=== PATIENT | female | born 1940 | race Caucasian/White ===

== ENCOUNTER 2018-07-19 10:49 | Observation (INO) ==
--- NOTE | 2018-07-19 11:41 | ED ---
HPI General Chief Complaint: Neuro Symptoms/Deficit Stated Complaint: confusion Time Seen by Provider: 07/19/18 11:17 Source: patient Mode of arrival: ambulatory Limitations: no limitations History of Present Illness HPI narrative: 77-year-old female with a history of CABG x3, HLD, HTN presents to the emergency department with confusion. States this morning she woke up feeling normal and she started reading. Says she was able to read but the words made no sense. Says she went right away to a friend's house who brought her to the emergency department for evaluation. Her friend, Patrica, states that patient was unable to figure out how to use a remote control and "did not know what a phone plumbers and top helpers was". Patrica states that patient is usually alert and oriented and very sharp. She says that the patient was "hyperventilating" while she was at her house prior to coming to the emergency department today. She says she checked her blood pressure and systolic was 168. Patient is unsure if she took all of her medication today which includes a 325 mg aspirin. Patient denies headache, blurred vision, fever, chills, chest pain, shortness of breath, abdominal pain. Patient does not follow a studio operator but does have a primary care physician. Of note, her of 60 years passed approximately 3 weeks ago. She has not had any issues up to now however. MD complaint: confusion Onset (ago): minute(s) Severity: mild Consistency of symptoms: constant Associated symptoms: denies other symptoms Related Data Home Medications Medication Instructions Recorded Confirmed aspirin 325 mg PO DAILY 07/19/18 07/19/18 atorvastatin 40 mg PO DAILY 07/19/18 07/19/18 enalapril maleate 20 mg PO DAILY 07/19/18 07/19/18 escitalopram oxalate 10 mg PO DAILY 07/19/18 07/19/18 metoprolol tartrate 50 mg PO BID 07/19/18 07/19/18 multivitamin [Multiple Vitamins] 1 tab PO DAILY 07/19/18 07/19/18 Allergies Allergy/AdvReac Type Severity Reaction Status Date / Time No Known Allergies Allergy Unverified 07/19/18 11:18 Review of Systems ROS: all other systems reviewed are negative FOR[facility]LY [facility] Medical History Medical History Depression (Acute) Hypercholesteremia (Acute) Hypertension (Acute) Hypothyroidism (Acute) Surgical History Surgical History Hx of CABG (Acute) Family History Family History Son Brain aneurysm Heart attack Social History Social History Substance History: No History of Abuse Smoking Status: Former smoker How Often Do You Have a Drink Containing Alcohol: Never Recent Travel in [facility] within the Last 8 Weeks: No Recent Out of Country Travel within the Last 8 Weeks: No Immunization History Tetanus Immunization: Unsure Exam Narrative Exam Narrative: GENERAL: WD, WN, mildly anxious, becoming more anxious when she cannot answer a question appropriately such as what medications she takes. SKIN: Focused skin assessment warm/dry. HEAD: Atraumatic. Normocephalic. EYES: Pupils equal and round. No scleral icterus. No injection or drainage. ENT: No nasal bleeding or discharge. Mucous membranes pink and moist. NECK: Trachea midline. No JVD. CARDIOVASCULAR: Regular rate and rhythm. No murmur appreciated. RESPIRATORY: No accessory muscle use. Clear to auscultation. Breath sounds equal bilaterally. GASTROINTESTINAL: Abdomen soft, non-tender, nondistended. Hepatic and splenic margins not palpable. MUSCULOSKELETAL: No obvious deformities. No clubbing. No cyanosis. No edema. NEUROLOGICAL: Awake and alert. Cranial nerves II through XII intact. Motor and sensory grossly within normal limits. Five out of 5 muscle strength in all muscle groups. Normal speech. No pronator drift, heel to tapia normal PSYCHIATRIC:Slightly anxious mood and affect; insight and judgment normal. Course Initial Documented Vital Signs Temperature 98.1 F 07/19/18 10:53 Pulse Rate 73 07/19/18 10:53 Respiratory Rate 20 07/19/18 10:53 Blood Pressure 213/90 H 07/19/18 10:53 Pulse Oximetry 97 07/19/18 10:53 Last Documented Vital Signs Temperature 98.1 F 07/19/18 10:53 Pulse Rate 61 07/19/18 14:58 Respiratory Rate 16 07/19/18 15:30 Blood Pressure 176/74 H 07/19/18 14:58 Pulse Oximetry 98 07/19/18 14:58 NIH Stroke Scale NIH Stroke Scale Level of Consciousness: 0-Alert Orientation Questions: 0-Answers both correct Responds to Commands: 0-Both tasks correct Gaze Eye Movement: 0-Horizontal movement WNL Visual Harvey: 0-No visual field defect Facial Movement: 0-Normal Motor Functions Arm LEFT: 0-No drift Motor Functions Arm RIGHT: 0-No drift Motor Functions Leg LEFT: 0-No drift Motor Functions Leg RIGHT: 0-No drift Limb Ataxia: 0-No ataxia Sensory Loss: 0-No sensory loss Best Language: 0-Normal Articulation: 0-Normal Extinction or Inattention Sensory: 0-Absent Total: 0 Medical Decision Making MDM Narrative Medical decision making narrative: 77-year-old female presents to the emergency department with a friend, Lyly, who was previously an RN. She assists with the history. Patient denies history of this sort of episode previously and states she has a history of hypertension, hyperlipidemia, and CABG. Patient does not follow studio operator in a number of years. Of note, her of 60 years recently approximately 3 weeks ago. However, she has not had any issues up until today. She took her medication today which include 325 mg aspirin. Physical exam findings demonstrate a 77-year-old female mildly anxious. I cannot appreciate any neuro deficits but patient becomes anxious when I asked her what medication she takes and she cannot remember. Upon reevaluation, pt recalls her medication after a medication reconcilliation. She still does not know what a phone plumbers and top helpers is for and is still confused, according to her friend. She also tells me she has a mild- moderate frontal parasinus headache that was present since this morning. She did not admit this upon initial evaluation. Tylenol for headache. Labs are stable. Cardiac enzymes stable. I explained that her symptoms may be related to complicated grief, however, I believe a period of observation would be appropriate. Consider Psych consult upon admission. I spoke with Dr. Snow who agreed to the admission. Medical Screen Exam Complete: Yes Emergency Medical Condition: Yes Differential Diagnosis Differential Diagnosis: Complicated grief, CVA, TIA, UTI, AMS Lab Data Result diagrams: 07/19/18 11:58 07/19/18 11:58 Lab Results 07/19/18 07/19/18 07/19/18 Range/Units 11:58 11:58 11:58 WBC 6.1 (4.0-11.0) th/mm3 RBC 4.09 (4.00-5.30) mil/mm3 Hgb 13.2 (11.6-15.3) gm/dL Hct 38.2 (35.0-46.0) % MCV 93.3 (80.0-100.0) fL MCH 32.2 (27.0-34.0) pg MCHC 34.6 (32.0-36.0) % RDW 13.9 (11.6-17.2) % Plt Count 271 (150-450) th/mm3 MPV 9.6 (7.0-11.0) fL Neut % (Auto) 62.2 (16.0-70.0) % Lymph % (Auto) 24.8 (9.0-44.0) % [place] % (Auto) 9.8 H (0.0-8.0) % Eos % (Auto) 2.4 (0.0-4.0) % Baso % (Auto) 0.8 (0.0-2.0) % Neut # (Auto) 3.8 (1.8-7.7) th/mm3 Lymph # (Auto) 1.5 (1.0-4.8) th/mm3 [place] # (Auto) 0.6 (0.0-0.9) th/mm3 Eos # (Auto) 0.1 (0.0-0.4) th/mm3 Baso # (Auto) 0.0 (0.0-0.2) th/mm3 WBC Differential . Differential Comment Auto diff final PT 10.1 (9.8-11.6) sec INR 1.0 Ratio APTT 22.4 L (24.3-30.1) sec Sodium 141 (136-145) meq/L Potassium 4.0 (3.5-5.1) meq/L Chloride 106 (98-107) meq/L Carbon Dioxide 23.0 (21.0-32.0) meq/L Anion Gap 12 (5-15) meq/L BUN 21 H (7-18) mg/dL Creatinine 0.96 (0.50-1.00) mg/dL Estimated GFR 56 L (>89) mL/min POC Glucose (68-110) mg/dl Random Glucose 107 H (74-106) mg/dL Calcium 8.6 (8.5-10.1) mg/dL Total Bilirubin 0.4 (0.2-1.0) mg/dL AST 18 (15-37) U/L ALT 23 (10-53) U/L Alkaline Phosphatase 52 (45-117) U/L Total Creatine Kinase 97 (26-192) U/L Troponin I Less than 0.02 L (0.02-0.05) ng/mL Total Protein 7.5 (6.4-8.2) g/dL Albumin 3.6 (3.4-5.0) g/dL TSH 3.130 (0.358-3.740) uIU/mL Urine Color (Yellw/Straw) Urine Clarity (Clear) Urine pH (5.0-8.5) Ur Specific [place] (1.002-1.035) Urine Protein (Neg-Trace) mg/dL Urine Glucose (UA) (Negative) mg/dL Urine Ketones (Negative) mg/dL Urine Occult Blood (Negative) Urine Nitrate (Negative) Urine Bilirubin (Negative) Urine Urobilinogen (Less than 2) mg/dL Ur Leukocyte Esterase (Negative) Urine RBC (0-3) /hpf Urine WBC (0-5) /hpf Micro UA Comment Ur Microscopic Review Urine Culture Comments 07/19/18 07/19/18 Range/Units 12:26 12:29 WBC (4.0-11.0) th/mm3 RBC (4.00-5.30) mil/mm3 Hgb (11.6-15.3) gm/dL Hct (35.0-46.0) % MCV (80.0-100.0) fL MCH (27.0-34.0) pg MCHC (32.0-36.0) % RDW (11.6-17.2) % Plt Count (150-450) th/mm3 MPV (7.0-11.0) fL Neut % (Auto) (16.0-70.0) % Lymph % (Auto) (9.0-44.0) % [place] % (Auto) (0.0-8.0) % Eos % (Auto) (0.0-4.0) % Baso % (Auto) (0.0-2.0) % Neut # (Auto) (1.8-7.7) th/mm3 Lymph # (Auto) (1.0-4.8) th/mm3 [place] # (Auto) (0.0-0.9) th/mm3 Eos # (Auto) (0.0-0.4) th/mm3 Baso # (Auto) (0.0-0.2) th/mm3 WBC Differential Differential Comment PT (9.8-11.6) sec INR Ratio APTT (24.3-30.1) sec Sodium (136-145) meq/L Potassium (3.5-5.1) meq/L Chloride (98-107) meq/L Carbon Dioxide (21.0-32.0) meq/L Anion Gap (5-15) meq/L BUN (7-18) mg/dL Creatinine (0.50-1.00) mg/dL Estimated GFR (>89) mL/min POC Glucose 113 H (68-110) mg/dl Random Glucose (74-106) mg/dL Calcium (8.5-10.1) mg/dL Total Bilirubin (0.2-1.0) mg/dL AST (15-37) U/L ALT (10-53) U/L Alkaline Phosphatase (45-117) U/L Total Creatine Kinase (26-192) U/L Troponin I (0.02-0.05) ng/mL Total Protein (6.4-8.2) g/dL Albumin (3.4-5.0) g/dL TSH (0.358-3.740) uIU/mL Urine Color Straw (Yellw/Straw) Urine Clarity Clear (Clear) Urine pH 8.0 (5.0-8.5) Ur Specific [place] 1.006 (1.002-1.035) Urine Protein Negative (Neg-Trace) mg/dL Urine Glucose (UA) Negative (Negative) mg/dL Urine Ketones Negative (Negative) mg/dL Urine Occult Blood Negative (Negative) Urine Nitrate Negative (Negative) Urine Bilirubin Negative (Negative) Urine Urobilinogen Less than 2 (Less than 2) mg/dL Ur Leukocyte Esterase Negative (Negative) Urine RBC 1 (0-3) /hpf Urine WBC Less than 1 (0-5) /hpf Micro UA Comment Culture not ind Ur Microscopic Review Not Reportable Urine Culture Comments Culture not ind Imaging Data Radiologist's impression: Head MRI 07/19/18 00:00 CONCLUSION: No acute intracranial findings. Head MRA 07/19/18 00:00 CONCLUSION: Negative MRA Cow ([place]) non contrast. Chest X-Ray 07/19/18 11:30 CONCLUSION: 1. Postsurgical features with compensated mild cardiomegaly. Head CT 07/19/18 11:30 CONCLUSION: 1. Senescent changes without acute intracranial abnormality. . Discharge Plan Discharge Disposition Patient Disposition: 30 Still Patient Discharge Condition Condition: Stable Physicians Team ED Provider: Flaco Clark ED Midlevel Provider: Martina Rivera Primary Care Provider: Fernie Sauceda Attending Provider: Sia Snow Status ED Status: Admitted Observation Patient
--- NOTE | 2018-07-19 11:50 | XR ---
EXAM DATE: 07/19/2018 11:46 AM EDT AGE/SEX: 77 years / Female INDICATIONS: General confusion and headache. CLINICAL DATA: This is the patient's initial encounter. Patient reports that signs and symptoms have been present for 1 day and indicates a pain score of 2/10. MEDICAL/SURGICAL HISTORY: Hypertension. None. COMPARISON: No prior exams available for comparison. FINDINGS: Median sternotomy wires. Cardiac silhouette is mildly enlarged. No significant focal pleural or paren chymal opacities. Bony thorax is intact. CONCLUSION: 1. Postsurgical features with compensated mild cardiomegaly. Electronically signed by: Ar Biggs MD 07/19/2018 11:48 AM EDT
[2018-07-19 12:20] LABS: Baso % (Auto) 0.8 % (0.0-2.0); Eos # (Auto) 0.1 th/mm3 (0.0-0.4); Eos % (Auto) 2.4 % (0.0-4.0); Hematocrit 38.2 % (35.0-46.0); Hemoglobin 13.2 gm/dL (11.6-15.3); Lymph # (Auto) 1.5 th/mm3 (1.0-4.8); Lymph % (Auto) 24.8 % (9.0-44.0); Mean Corpuscular HGB Conc 34.6 % (32.0-36.0); Mean Corpuscular Hemoglobin 32.2 pg (27.0-34.0); Mean Corpuscular Volume 93.3 fL (80.0-100.0); Mean Platelet Volume 9.6 fL (7.0-11.0); Mono # (Auto) 0.6 th/mm3 (0.0-0.9); Mono % (Auto) 9.8 % (0.0-8.0); Neut # (Auto) 3.8 th/mm3 (1.8-7.7); Neut % (Auto) 62.2 % (16.0-70.0); Platelet Count 271 th/mm3 (150-450); Red Blood Count 4.09 mil/mm3 (4.00-5.30); Red Cell Distribution Width 13.9 % (11.6-17.2); White Blood Count 6.1 th/mm3 (4.0-11.0)
[2018-07-19 12:33] LABS: Activated Partial Thrombo Time 22.4 sec (24.3-30.1); Prothrombin Time 10.1 sec (9.8-11.6)
[2018-07-19 12:35] LABS: Alanine Aminotransferase 23 U/L (10-53); Albumin 3.6 g/dL (3.4-5.0); Anion Gap 12 meq/L (5-15); Aspartate Aminotransferase 18 U/L (15-37); Blood Urea Nitrogen 21 mg/dL (7-18); Calcium 8.6 mg/dL (8.5-10.1); Chloride 106 meq/L (98-107); Glomerular Filtration Rate 56 mL/min (>89); Glucose,Random 107 mg/dL (74-106); Sodium 141 meq/L (136-145)
[2018-07-19 12:44] LABS: Bilirubin,Urine Negative (Negative); Clarity,Urine Clear (Clear); Color,Urine Straw (Yellw/Straw); Glucose,Urine (UA) Negative (Negative); Leukocyte Esterase,Urine Negative (Negative); Nitrite,Urine Negative (Negative); Specific Gravity,Urine 1.006 (1.002-1.035)
[2018-07-19 12:45] LABS: Alkaline Phosphatase 52 U/L (45-117); Total Protein 7.5 g/dL (6.4-8.2)
--- NOTE | 2018-07-19 13:05 | CT ---
EXAM DATE: 07/19/2018 1:02 PM EDT AGE/SEX: 77 years / Female INDICATIONS: Altered mental status, confusion CLINICAL DATA: This is the patient's initial encounter. Patient reports that signs and symptoms have been present for 1 day and indicates a pain score of 0/10. MEDICAL/SURGICAL HISTORY: Hypertension. Hypothyroidism. CABG. RADIATION DOSE: 34.45 CTDI (mGy) COMPARISON: No prior exams available for comparison. TECHNIQUE: CT of the head without contrast. Using automated exposure control and adjustment of the mA and/or kV according to patient size, radiation dose was kept as low as reasonably achievable to ob tain optimal diagnostic quality images. DICOM format image data is available electronically for revi ew and comparison. FINDINGS: Cerebrum: Moderate diffuse cerebral atrophy. The ventricles are normal for degree of atrophy. No judith dence of midline shift, mass lesion, hemorrhage or acute infarction. No extraaxial fluid collections are seen. Posterior Fossa: The cerebellum and brainstem are intact. The 4th ventricle is midline. The cerebe llopontine angle is unremarkable. Extracranial: The visualized portion of the orbits is intact. Skull: The calvaria is intact. No evidence of skull fracture. CONCLUSION: 1. Senescent changes without acute intracranial abnormality. . Electronically signed by: Ar Biggs MD 07/19/2018 1:03 PM EDT
[2018-07-19 13:10] LABS: Creatine Kinase 97 U/L (26-192)
[2018-07-19] MEDS ORDERED: Acetaminophen 500 MG Tablet PO ONE (13:31)
[2018-07-19] MEDS ORDERED: Bisacodyl 10 MG Supp RECTAL PRN (13:37)
[2018-07-19] MEDS ORDERED: Acetaminophen 325 MG Tablet PO PRN (13:37)
--- NOTE | 2018-07-19 14:20 | P.HPIM ---
History of Present Illness Primary Care Physician: Fernie Sauceda MD History of Present Illness: 77 year old female with HLD, HTN, CAD s/p CABG x 3, "painless" migraines with aura presented to the ER by private vehicle for evaluation of altered mental status. The patient reports this morning when she was reading she felt like she could read the words but couldn't understand what they meant. She immediately felt anxious and started panicking. She went to her neighbors house who monitored her closely. Her neighbor, a retired RN, reports she is typically very cognitively sharp but states this morning she had difficulty identifying every day items such as a phone charge. She was however able to use the television remote. The patient admits that she has been under a tremendous amount of stress after losing her three weeks ago. She is very worried about her symptoms and is scared it may have been a stroke. She denies any lateralizing symptoms, facial droop, visual changes, slurred speech, dizziness, gait instability, falls, or paresthesias. She states she did notice a headache in between her eyes this morning and it is still present despite taking Tylenol. She denies chest pain, shortness of breath, abdominal pain, nausea, or vomiting. She takes Lexapro for depression. She states lately she has been feeling anxious, shaky, and has had difficulty sleeping. She states aside from feeling anxious her symptoms have otherwise resolved. - Diagnosis (1) Altered mental status Review of Systems All other systems reviewed negative except as stated in HPI PMFSH - History History Provided By: Patient, Family Member - Medical History Medical History: Medical History (Last Updated 07/19/18 @ 11:22 by Erna Georges) Depression Hypercholesteremia Hypertension Hypothyroidism - Surgical History Surgical History: Surgical History (Last Updated 07/19/18 @ 11:23 by Erna Georges) Hx of CABG - Family History Family History: Family History (Last Updated 07/19/18 @ 13:55 by Sia Snow MD) Son Brain aneurysm Heart attack - Tobacco History Smoking Status: Former smoker - Alcohol History How Often Do You Have a Drink Containing Alcohol: Never - Substance Use History Substance History: No History of Abuse - Travel History Recent Travel in the [facility] Within the Last 8 Weeks: No Recent Travel Out of the Country Within the Last 8 Weeks: No - Immunization History Tetanus Immunization: Unsure Medications and Allergies Active Medications: Active Medications Acetaminophen (Tylenol) 650 mg PO Q4H PRN PRN Reason: Temp > 100.4 Al Hydroxide/Mg Hydroxide (Milk Of Magnesia Liq) 30 ml PO Q12H PRN PRN Reason: Mild Constipation Bisacodyl (Dulcolax Supp) 10 mg RECTAL DAILY PRN PRN Reason: SEVERE CONSITIPATION Sodium Chloride (Ns Inj) 1,000 mls @ 70 mls/hr IV.CONT .[id number] LETY Lactulose (Lactulose Liq) 30 ml PO DAILY PRN PRN Reason: SEVERE CONSITIPATION Ondansetron HCl (Zofran Inj) 4 mg IV.PUSH Q6H PRN PRN Reason: NAUSEA OR VOMITING Senna/Docusate Sodium ([place]-Colace) 1 tab PO BID LETY Sennosides (Senokot) 17.2 mg PO Q12H PRN PRN Reason: Moderate Constipation Sodium Chloride (Ns Flush) 2 ml IV.FLUSH PRN PRN PRN Reason: FLUSH AFTER USING IV ACCESS Allergies Allergy/AdvReac Type Severity Reaction Status Date / Time No Known Allergies Allergy Unverified 07/19/18 11:18 Home Medications Medication Instructions Recorded Confirmed Type aspirin 325 mg PO DAILY 07/19/18 07/19/18 History atorvastatin 40 mg PO DAILY 07/19/18 07/19/18 History enalapril maleate 20 mg PO DAILY 07/19/18 07/19/18 History escitalopram oxalate 10 mg PO DAILY 07/19/18 07/19/18 History metoprolol tartrate 50 mg PO BID 07/19/18 07/19/18 History multivitamin [Multiple Vitamins] 1 tab PO DAILY 07/19/18 07/19/18 History Exam Vital signs: Vital Signs 07/19/18 10:53 07/19/18 10:57 07/19/18 11:30 Temperature 98.1 F Pulse Rate 73 61 61 Respiratory Rate 20 20 Blood Pressure 213/90 H 178/78 H Pulse Oximetry 97 97 98 07/19/18 12:31 Temperature Pulse Rate 62 Respiratory Rate 18 Blood Pressure 182/81 H Pulse Oximetry 100 Intake & Output 07/18/18 07/19/18 07/19/18 18:59 06:59 18:59 Weight 81.647 kg Narrative: GENERAL: WN, WD female sitting up in bed visibly anxious and tremulous. SKIN: Warm and dry. Not diaphoretic. No rashes. HEENT: AT/NC. PERRLA. EOMI. No nystagmus. MMM. NECK: Supple no tender LAD or JVD. HEART: RRR no m/r/g. LUNGS: CTAB without wheezes or crackles. ABDOMEN: +BS, soft, NT, ND. EXTREMITIES: No LE edema. 2+ pedal pulses. NEURO: A&O x 3. CN II-XII intact. UE and LE strength 5/5 bilaterally. No pronator drift. No clonus. Able to perform rapid alternating movements. Sensation intact. Able to read out loud some text to me and interpret meaning. Able to name simple objects. PSYCH: Anxious. Results - Labs CBC & Chem 7: 07/19/18 11:58 07/19/18 11:58 Labs: Short CBC 07/19/18 Range/Units 11:58 WBC 6.1 (4.0-11.0) th/mm3 Hgb 13.2 (11.6-15.3) gm/dL Hct 38.2 (35.0-46.0) % Plt Count 271 (150-450) th/mm3 BMP 07/19/18 11:58 Sodium 141 Potassium 4.0 Chloride 106 Carbon Dioxide 23.0 BUN 21 H Creatinine 0.96 Calcium 8.6 Cardiac Enzymes 07/19/18 Range/Units 11:58 Total Creatine Kinase 97 (26-192) U/L Troponin I Less than 0.02 L (0.02-0.05) ng/mL Liver Function 07/19/18 Range/Units 11:58 Total Bilirubin 0.4 (0.2-1.0) mg/dL AST 18 (15-37) U/L ALT 23 (10-53) U/L Alkaline Phosphatase 52 (45-117) U/L Albumin 3.6 (3.4-5.0) g/dL Urine 07/19/18 Range/Units 12:26 Urine Color Straw (Yellw/Straw) Urine Clarity Clear (Clear) Urine pH 8.0 (5.0-8.5) Ur Specific [place] 1.006 (1.002-1.035) Urine Protein Negative (Neg-Trace) mg/dL Urine Glucose (UA) Negative (Negative) mg/dL - Imaging Impressions Chest X-Ray 07/19/18 11:30 CONCLUSION: 1. Postsurgical features with compensated mild cardiomegaly. Head CT 07/19/18 11:30 CONCLUSION: 1. Senescent changes without acute intracranial abnormality. . Caprini VTE Risk Assessment Caprini VTE Risk Assessment: Moderate/High Risk (score >= 2) Caprini Risk Assessment Model: Point Value = 1 Point Value = 2 Point Value = 3 Point Value = 5 Age 41-60 Minor surgery BMI > 25 kg/m2 Swollen legs Varicose veins or History of unexplained or recurrent spontaneous Oral contraceptives or hormone replacement Sepsis (< 1 month) Serious lung disease, including pneumonia (< 1 month) Abnormal pulmonary function Acute myocardial infarction Congestive heart failure (< 1 month) History of inflammatory bowel disease Medical patient at bed rest Age 61-74 Arthroscopic surgery Major open surgery (> 45 min) Laparoscopic surgery (> 45 min) Malignancy Confined to bed (> 72 hours) Immobilizing plaster cast Central venous access Age >= 75 History of VTE Family history of VTE Factor V Leiden Prothrombin [id number] Lupus anticoagulant Anticardiolipin antibodies Elevated serum homocysteine Heparin-induced thrombocytopenia Other congenital or acquired thrombophilia Stroke (< 1 month) Elective arthroplasty Hip, pelvis, or leg fracture Acute spinal cord injury (< 1 month) Prophylaxis Regimen: Total Risk Factor Score Risk Level Prophylaxis Regimen 0-1 Low Early ambulation 2 Moderate Order ONE of the following: *Sequential Compression Device (SCD) *Heparin 5000 units SQ BID 3-4 Higher Order ONE of the following medications: *Heparin 5000 units SQ TID *Enoxaparin/Lovenox 40 mg SQ daily (WT < 150 kg, CrCl > 30 mL/min) *Enoxaparin/Lovenox 30 mg SQ daily (WT < 150 kg, CrCl > 10-29 mL/min) *Enoxaparin/Lovenox 30 mg SQ BID (WT < 150 kg, CrCl > 30 mL/min) AND/OR *Sequential Compression Device (SCD) 5 or more Highest Order ONE of the following medications: *Heparin 5000 units SQ TID (Preferred with Epidurals) *Enoxaparin/Lovenox 40 mg SQ daily (WT < 150 kg, CrCl > 30 mL/min) *Enoxaparin/Lovenox 30 mg SQ daily (WT < 150 kg, CrCl > 10-29 mL/min) *Enoxaparin/Lovenox 30 mg SQ BID (WT < 150 kg, CrCl > 30 mL/min) AND *Sequential Compression Device (SCD) Assessment and Plan - Assessment (1) Altered mental status Code(s): R41.82 - Altered mental status, unspecified Status: Acute - Plan 77 year old female with HLD, HTN, CAD s/p CABG x 3, "painless" migraines with aura presented to the ER by private vehicle for evaluation of altered mental status earlier in the day. 1. AMS - No signs of infection. No fever, leukocytosis, or UTI - CXR with mild compensated cardiomegaly otherwise negative for acute process - CT and MRI brain negative - MRA brain negative - Carotid U/S ordered - Defer echocardiogram - Neuro exam is completely normal - Pt with recent loss of of 60 years - Likely her symptoms were anxiety from her recent loss and the amount of stress she has been under - NS at 70 ml/hr - Will observe overnight with neuro checks 2. HTN - Elevated likely secondary to anxiety - Resume home metoprolol and Vasotec - Clonidine PRN 3. HLD - Resume home statin 4. CAD - S/P CABG - EKG showing SR, Q-waves in III and AVF - Troponin negative, trend given altered mentation earlier - Resume home metoprolol and Vasotec 5. Depression/anxiety - Continue Lexapro - Add Xanax PRN DVT prophylaxis: SCDs Code Status: Full Discussed Condition With: Patient Discharge Planning: Anticipate D/C tomorrow if patient remains stable
[2018-07-19] MEDS: Sod Chloride 0.9% Inj 1,000 ML IV.CONT SCH (14:53)
--- NOTE | 2018-07-19 14:58 | MR ---
EXAM DATE: 07/19/2018 2:53 PM EDT AGE/SEX: 77 years / Female INDICATIONS: Cephalgia. CLINICAL DATA: This is the patient's initial encounter. Patient reports that signs and symptoms have been present for 1 day and indicates a pain score of 0/10. MEDICAL/SURGICAL HISTORY: Hypertension. CABG. Tonsillectomy. COMPARISON: [facility] [place], MR HEAD W/O CONTRAST, 07/19/2018. . TECHNIQUE: 3D [id number] MRA was performed. Source images, multiplanar STS MIP, and 3D volum e MIP reconstructions were reviewed. FINDINGS: There is excellent visualization of the major intracranial arteries out to the second-order branch ve ssels. There is no evidence for aneurysm, vessel truncation or stenosis, and no evidence for vascula r malformation. CONCLUSION: Negative MRA Cow ([place]) non contrast. Electronically signed by: Abhay Joyner MD 07/19/2018 2:56 PM EDT
--- NOTE | 2018-07-19 14:59 | MR ---
EXAM DATE: 07/19/2018 2:53 PM EDT AGE/SEX: 77 years / Female INDICATIONS: Cephalgia. CLINICAL DATA: This is the patient's initial encounter. Patient reports that signs and symptoms have been present for 1 day and indicates a pain score of 0/10. MEDICAL/SURGICAL HISTORY: Hypertension. CABG. Tonsillectomy. COMPARISON: No prior exams available for comparison. TECHNIQUE: Multiplanar, multisequence examination of the brain was performed without contrast. FINDINGS: Cerebrum: The ventricles are normal for age. No evidence of midline shift, mass lesion, hemorrhage or acute infarction. No extraaxial fluid collections are seen. The pituitary gland and suprasellar cistern are normal in configuration. White Matter: Scattered foci of white matter hyperintensity in the periventricular regions indicatin g chronic ischemic change. Posterior Fossa: The cerebellum and brainstem are intact. The 4th ventricle is midline. The cerebel lopontine angle is unremarkable. The cerebellar tonsils are normal in position. Diffusion Imaging: No focal areas of restricted diffusion are seen. No evidence of acute infarction . Extracranial: The visualized portions of the orbits and paranasal sinuses are unremarkable. CONCLUSION: No acute intracranial findings. Electronically signed by: Ryan Velazquez MD 07/19/2018 2:57 PM EDT
--- NOTE | 2018-07-19 17:51 | US ---
EXAM DATE: 07/19/2018 5:24 PM EDT AGE/SEX: 77 years / Female INDICATIONS: Transient ischemic attack. CLINICAL DATA: This is the patient's initial encounter. Patient reports that signs and symptoms have been present for 1 day and indicates a pain score of 0/10. MEDICAL/SURGICAL HISTORY: Hypercholesterolemia. Hypertension. Hypothyroidism. Depression. C ABG. COMPARISON: No prior exams available for comparison. VELOCITY PARAMETERS: ICA/CCA Ratio: Right 2.2 , Left 2.6 ICA: Right 127 cm/sec, Left 127 cm/sec CCA: Right 58.4 cm/sec, Left 49.4 cm/sec ECA: Right 100 cm/sec, Left 108 cm/sec Vertebral: Right 78.0 cm/sec antegrade, Left 83.2 cm/sec antegrade FINDINGS: Right Carotid: Moderate arteriosclerotic plaque is visualized.The waveforms are within normal limits . Left Carotid: Moderate arteriosclerotic plaque is visualized. The waveforms are within normal limits . Other: None. CONCLUSION: 1. Right Internal Carotid Artery: Findings indicate <50% stenosis. 2. Left Internal Carotid Artery: Findings indicate <50% stenosis. 3. Antegrade flow both vertebral arteries. Electronically signed by: Jean Sen MD 07/19/2018 5:50 PM EDT
--- NOTE | 2018-07-19 20:25 | ECG ---
Date Performed: 07/19/2018 Time Performed: 12:34:19 PTAGE: 77 years EKG: Sinus rhythm POSSIBLE ANTERIOR MYOCARDIAL INFARCTION INFERIOR MYOCARDIAL INFARCTION ABNORMAL ECG NO PREVIOUS TRACING DOCTOR: Ricky Chamorro Interpretating Date/Time 07/19/2018 20:24:16
[2018-07-19] MEDS: Metoprolol Tartrate 50 MG Tablet PO SCH (21:21)
[2018-07-19] MEDS: ALPRAZolam 0.25 MG Tablet PO PRN (21:26)
[2018-07-19] MEDS: Senna/Docusate Sodium 8.6/50 MG Tablet PO SCH (23:14)
[2018-07-19] MEDS: Heparin Drip 25,000 UNIT/250 ML BAG IV.CONT PRN (23:39)
[2018-07-20 00:14] LABS: Activated Partial Thrombo Time 21.7 sec (24.3-30.1); INR 1.1 Ratio; Prothrombin Time 10.8 sec (9.8-11.6)
[2018-07-20] MEDS ORDERED: Heparin 10,000 UNITS/10 ML Vial (for IV use) IV.PUSH PRN (04:24)
[2018-07-20] MEDS: Sod Chloride 0.9% Inj 1,000 ML IV.CONT SCH ×2 (05:08→17:58)
[2018-07-20 05:56] LABS: Baso % (Auto) 0.7 % (0.0-2.0); Eos # (Auto) 0.1 th/mm3 (0.0-0.4); Eos % (Auto) 1.6 % (0.0-4.0); Hematocrit 34.7 % (35.0-46.0); Hemoglobin 11.8 gm/dL (11.6-15.3); Lymph # (Auto) 1.9 th/mm3 (1.0-4.8); Lymph % (Auto) 32.9 % (9.0-44.0); Mean Corpuscular HGB Conc 33.9 % (32.0-36.0); Mean Corpuscular Hemoglobin 31.7 pg (27.0-34.0); Mean Corpuscular Volume 93.7 fL (80.0-100.0); Mean Platelet Volume 9.9 fL (7.0-11.0); Mono # (Auto) 0.6 th/mm3 (0.0-0.9); Mono % (Auto) 10.1 % (0.0-8.0); Neut # (Auto) 3.2 th/mm3 (1.8-7.7); Neut % (Auto) 54.7 % (16.0-70.0); Platelet Count 222 th/mm3 (150-450); Red Blood Count 3.71 mil/mm3 (4.00-5.30); Red Cell Distribution Width 13.8 % (11.6-17.2); White Blood Count 5.9 th/mm3 (4.0-11.0)
[2018-07-20 06:34] LABS: Calcium 8.1 mg/dL (8.5-10.1); Carbon Dioxide 23.5 meq/L (21.0-32.0)
[2018-07-20] MEDS: Escitalopram 10 MG Tablet PO SCH (08:35)
[2018-07-20] MEDS: Metoprolol Tartrate 50 MG Tablet PO SCH ×2 (08:35→21:02)
[2018-07-20] MEDS: Aspirin 325 MG Tablet PO SCH (08:35)
[2018-07-20] MEDS: Senna/Docusate Sodium 8.6/50 MG Tablet PO SCH ×2 (08:36→21:02)
--- NOTE | 2018-07-20 10:11 | P.CONCA ---
History of Present Illness Consult date: 07/20/18 Reason for Consult: NSTEMI Primary Care Provider: Fernie Sauceda MD Chief Complaint: NSTEMI History of Present Illness: 77 year old history of CAD s/p CABG, HTN, HLD, and former smoking who presented to the ER with confusion and an inability to read. She has unfortunately had a great deal of stress secondary to the recent loss of her . She does not report having chest pain, shortness of breath, PND, orthopnea. She has not had a recent cardiovascular workup. Her troponin was found to be elevated at 0.88. There were no acute EKG changes. Currently, the patient is chest pain free and eating breakfast. Review of Systems Negative unless mentioned in the HPI. PMFSH - History History Provided By: Patient - Medical History Medical History: Medical History (Last Updated 07/19/18 @ 11:22 by Erna Georges) Depression Hypercholesteremia Hypertension Hypothyroidism - Surgical History Surgical History: Surgical History (Last Updated 07/19/18 @ 11:23 by Erna Georges) Hx of CABG - Family History Family History: Family History (Last Updated 07/19/18 @ 13:55 by Sia Snow MD) Son Brain aneurysm Heart attack - Tobacco History Second Hand Smoke Exposure: No Tobacco Use In Past 30 Days: No (Quit 30 years ago) Smoking Status: Former smoker Tobacco Type: Cigarettes - Alcohol History How Often Do You Have a Drink Containing Alcohol: Never - Substance Use History Substance History: No History of Abuse - Travel History Recent Travel in the [place] Within the Last 8 Weeks: No Recent Travel Out of the Country Within the Last 8 Weeks: No - Immunization History Tetanus Immunization: Unsure Medications and Allergies Active Medications: Active Medications Acetaminophen (Tylenol) 650 mg PO Q4H PRN PRN Reason: HEADACHE OR TEMP > 101 F Last Admin: 07/19/18 18:02 Dose: 325 mg Al Hydroxide/Mg Hydroxide (Milk Of Magnesia Liq) 30 ml PO Q12H PRN PRN Reason: Mild Constipation Alprazolam (Xanax) 0.25 mg PO Q6H PRN PRN Reason: ANXIETY Last Admin: 07/19/18 21:26 Dose: 0.25 mg Aspirin (Aspirin) 325 mg PO DAILY LETY Last Admin: 07/20/18 08:35 Dose: 325 mg Atorvastatin Calcium (Lipitor) 40 mg PO DAILY [facility] Bisacodyl (Dulcolax Supp) 10 mg RECTAL DAILY PRN PRN Reason: SEVERE CONSITIPATION Clonidine HCl (Catapres) 0.1 mg PO Q6H PRN PRN Reason: SBP>160, DBP>90 Enalapril Maleate (Vasotec) 20 mg PO DAILY [facility] Last Admin: 07/20/18 08:35 Dose: 20 mg Escitalopram Oxalate (Lexapro) 10 mg PO DAILY [facility] Last Admin: 07/20/18 08:35 Dose: 10 mg Heparin Sodium (Porcine) (Heparin Inj) 2,500 units IV.PUSH UNSCH PRN PRN Reason: aPTT 25-39 Sodium Chloride (Ns Inj) 1,000 mls @ 70 mls/hr IV.CONT .[id number] [facility] Last Admin: 07/20/18 05:08 Dose: 70 mls/hr Heparin Sodium/Dextrose (Heparin/D5w 25,000 U/250 Ml) 25,000 unit in 250 mls @ 10 mls/hr IV.CONT TITRATE PRN; Protocol PRN Reason: Per Protocol Last Titration: 07/20/18 06:48 Dose: 1,100 units/hr, 11 mls/hr Lactulose (Lactulose Liq) 30 ml PO DAILY PRN PRN Reason: SEVERE CONSITIPATION Metoprolol Tartrate (Lopressor) 50 mg PO BID [facility] Last Admin: 07/20/18 08:35 Dose: 50 mg Ondansetron HCl (Zofran Inj) 4 mg IV.PUSH Q6H PRN PRN Reason: NAUSEA OR VOMITING Senna/Docusate Sodium ([place]-Colace) 1 tab PO BID [facility] Last Admin: 07/20/18 08:36 Dose: Not Given Sennosides (Senokot) 17.2 mg PO Q12H PRN PRN Reason: Moderate Constipation Sodium Chloride (Ns Flush) 2 ml IV.FLUSH PRN PRN PRN Reason: FLUSH AFTER USING IV ACCESS Allergies Allergy/AdvReac Type Severity Reaction Status Date / Time No Known Allergies Allergy Unverified 07/19/18 11:18 Home Medications Medication Instructions Recorded Confirmed Type aspirin 325 mg PO DAILY 07/19/18 07/19/18 History atorvastatin 40 mg PO DAILY 07/19/18 07/19/18 History enalapril maleate 20 mg PO DAILY 07/19/18 07/19/18 History escitalopram oxalate 10 mg PO DAILY 07/19/18 07/19/18 History metoprolol tartrate 50 mg PO BID 07/19/18 07/19/18 History multivitamin [Multiple Vitamins] 1 tab PO DAILY 07/19/18 07/19/18 History Exam Vital signs: Vital Signs 07/19/18 10:53 07/19/18 10:57 07/19/18 11:30 Temperature 98.1 F Pulse Rate 73 61 61 Respiratory Rate 20 20 Blood Pressure 213/90 H 178/78 H Pulse Oximetry 97 97 98 07/19/18 12:31 07/19/18 13:40 07/19/18 14:58 Temperature Pulse Rate 62 61 Respiratory Rate 18 18 16 Blood Pressure 182/81 H 176/74 H Pulse Oximetry 100 98 07/19/18 15:30 07/19/18 17:15 07/19/18 17:47 Temperature 98.1 F Pulse Rate 63 63 Respiratory Rate 16 16 14 Blood Pressure 147/67 H 163/73 H Pulse Oximetry 96 07/19/18 19:40 07/19/18 20:00 07/19/18 22:55 Temperature 97.3 F L Pulse Rate 65 50 L 49 L Respiratory Rate 14 18 Blood Pressure 116/59 L 120/56 L 120/56 L Pulse Oximetry 95 07/19/18 23:40 07/20/18 00:00 07/20/18 01:40 Temperature 98.0 F 98.0 F 98.0 F Pulse Rate 49 L 49 L 59 L Respiratory Rate 15 14 14 Blood Pressure 114/55 L 114/55 L 114/55 L Pulse Oximetry 97 07/20/18 03:33 07/20/18 04:00 07/20/18 05:40 Temperature 98.1 F 98.1 F 98.5 F Pulse Rate 49 L 49 L 48 L Respiratory Rate 14 14 Blood Pressure 114/55 L 114/55 L 123/60 Pulse Oximetry 07/20/18 07:33 07/20/18 08:00 Temperature 98.6 F Pulse Rate 57 L 49 L Respiratory Rate 12 Blood Pressure 138/63 Pulse Oximetry 97 Intake & Output 07/19/18 07/20/18 07/20/18 18:59 06:59 18:59 Intake Total 1000 / 1000 Balance 1000 / 1000 Weight 81.647 kg Intake: IV 1000 / 1000 NS Inj 1,000 ML @ 70 mls/hr IV. 1000 / 1000 CONT .[id number] [facility] Rx#:[id number] Other: # Voids 1 4 Date of Last Bowel Movement 07/19/18 07/19/18 # Bowel Movements 1 - Constitutional no acute distress - Routine HEENT Exam Head: Present: normocephalic Eye: Present: EOMI ENT: Present: mucous membranes moist - Routine Neck Exam Present: supple - Routine Respiratory Exam Present: CTA bilaterally - Routine Cardiovascular Exam Present: RRR, S1, S2 - Routine Abdominal Exam Present: soft, normoactive bowel sounds - Routine Extremities Exam Absent: edema - Routine Skin Exam Absent: rash - Routine Neurological Exam Present: alert, oriented X3 - Routine Psychiatric Exam Present: normal affect Results 07/20/18 04:15 07/20/18 04:15 Cardiac Enzymes 07/19/18 07/19/18 07/20/18 Range/Units 11:58 19:51 01:15 AST 18 (15-37) U/L Troponin I Less than 0.02 L 0.82 H* D 0.88 H* (0.02-0.05) ng/mL Coagulation 07/19/18 07/19/18 07/20/18 Range/Units 11:58 23:35 04:13 PT 10.1 10.8 (9.8-11.6) sec APTT 22.4 L 21.7 L 31.7 H D (24.3-30.1) sec CBC 07/19/18 07/20/18 Range/Units 11:58 04:15 WBC 6.1 5.9 (4.0-11.0) th/mm3 RBC 4.09 3.71 L (4.00-5.30) mil/mm3 Hgb 13.2 11.8 (11.6-15.3) gm/dL Hct 38.2 34.7 L (35.0-46.0) % Plt Count 271 222 (150-450) th/mm3 Neut # (Auto) 3.8 3.2 (1.8-7.7) th/mm3 Lymph # (Auto) 1.5 1.9 (1.0-4.8) th/mm3 [place] # (Auto) 0.6 0.6 (0.0-0.9) th/mm3 Eos # (Auto) 0.1 0.1 (0.0-0.4) th/mm3 Baso # (Auto) 0.0 0.0 (0.0-0.2) th/mm3 Comprehensive Metabolic Panel 07/19/18 07/20/18 Range/Units 11:58 04:15 Sodium 141 143 (136-145) meq/L Potassium 4.0 4.0 (3.5-5.1) meq/L Chloride 106 111 H (98-107) meq/L Carbon Dioxide 23.0 23.5 (21.0-32.0) meq/L BUN 21 H 16 (7-18) mg/dL Creatinine 0.96 0.82 (0.50-1.00) mg/dL Calcium 8.6 8.1 L (8.5-10.1) mg/dL AST 18 (15-37) U/L ALT 23 (10-53) U/L Alkaline Phosphatase 52 (45-117) U/L Total Protein 7.5 (6.4-8.2) g/dL Albumin 3.6 (3.4-5.0) g/dL Intake and Output 07/19/18 07/20/18 07/20/18 22:59 06:59 14:59 Intake Total 1000 / 1000 Balance 1000 / 1000 Intake: IV 1000 / 1000 NS Inj 1,000 ML @ 70 mls/hr IV. 1000 / 1000 CONT .[id number] [facility] Rx#:[id number] Other: # Voids 4 Date of Last Bowel Movement 07/19/18 # Bowel Movements 1 EKG interpretations - EKG EKG results cardiology: interpreted by ERMD (sinus, poor r wave progression, TWI ) Assessment and Plan - Plan NSTEMI- Given her risk factors and prior history of CAD, she is atleast moderate risk for true epicardial thrombosis. Her event was likely stress driven and her neurological workup thus far has been negative. Nonetheless, given that she has not had a CV workup, I would like to order a Lexiscan (patient reports she can exercise on a treadmill). I would also like to order an echo to evaluate the LV function. We will continue her home medications at this time.
--- NOTE | 2018-07-20 11:53 | ECG ---
Date Performed: 07/20/2018 Time Performed: 04:52:47 PTAGE: 77 years EKG: SINUS BRADYCARDIA ANTERIOR MYOCARDIAL INFARCTION INFERIOR MYOCARDIAL INFARCTION MODERATE T- WAVE ABNORMALITY ABNORMAL ECG PREVIOUS TRACING : 07/19/2018 22.24 Since the previous tracing, no significant change noted DOCTOR: Ricky Chamorro Interpretating Date/Time 07/20/2018 11:53:23
--- NOTE | 2018-07-20 13:25 | ECG ---
Date Performed: 07/19/2018 Time Performed: 22:24:08 PTAGE: 77 years EKG: SINUS BRADYCARDIA ANTERIOR MYOCARDIAL INFARCTION INFERIOR MYOCARDIAL INFARCTION MODERATE T- WAVE ABNORMALITY ABNORMAL ECG PREVIOUS TRACING : 07/19/2018 12.34 Compared to previous tracing, rate slower DOCTOR: Ricky Chamorro Interpretating Date/Time 07/20/2018 13:23:50
--- NOTE | 2018-07-20 15:05 | P.PNIM ---
Subjective Interval history: 77 year old female with HLD, HTN, CAD s/p CABG x 3, "painless" migraines with aura presented to the ER by private vehicle for evaluation of altered mental status. The patient reports this morning when she was reading she felt like she could read the words but couldn't understand what they meant. She immediately felt anxious and started panicking. She went to her neighbors house who monitored her closely. Her neighbor, a retired RN, reports she is typically very cognitively sharp but states this morning she had difficulty identifying every day items such as a phone charge. She was however able to use the television remote. The patient admits that she has been under a tremendous amount of stress after losing her three weeks ago. She is very worried about her symptoms and is scared it may have been a stroke. She denies any lateralizing symptoms, facial droop, visual changes, slurred speech, dizziness, gait instability, falls, or paresthesias. She states she did notice a headache in between her eyes this morning and it is still present despite taking Tylenol. She denies chest pain, shortness of breath, abdominal pain, nausea, or vomiting. She takes Lexapro for depression. She states lately she has been feeling anxious, shaky, and has had difficulty sleeping. She states aside from feeling anxious her symptoms have otherwise resolved. 07-20 MENTAL STATUS IMPROVED TO HAVE ECHO TODAY AND STRESS TEST TOMORROW DW RN AND PT AND CM AND CARDIOLOGY Physical Exam Vital signs: Vital Signs 07/19/18 15:30 07/19/18 17:15 07/19/18 17:47 Temperature 98.1 F Pulse Rate 63 63 Respiratory Rate 16 16 14 Blood Pressure 147/67 H 163/73 H Pulse Oximetry 96 07/19/18 19:40 07/19/18 20:00 07/19/18 22:55 Temperature 97.3 F L Pulse Rate 65 50 L 49 L Respiratory Rate 14 18 Blood Pressure 116/59 L 120/56 L 120/56 L Pulse Oximetry 95 07/19/18 23:40 07/20/18 00:00 07/20/18 01:40 Temperature 98.0 F 98.0 F 98.0 F Pulse Rate 49 L 49 L 59 L Respiratory Rate 15 14 14 Blood Pressure 114/55 L 114/55 L 114/55 L Pulse Oximetry 97 07/20/18 03:33 07/20/18 04:00 07/20/18 05:40 Temperature 98.1 F 98.1 F 98.5 F Pulse Rate 49 L 49 L 48 L Respiratory Rate 14 14 Blood Pressure 114/55 L 114/55 L 123/60 Pulse Oximetry 07/20/18 07:33 07/20/18 08:00 07/20/18 11:37 Temperature 98.6 F 98.1 F Pulse Rate 57 L 49 L 46 L Respiratory Rate 12 12 Blood Pressure 138/63 113/53 L Pulse Oximetry 97 97 Intake & Output 07/19/18 07/20/18 07/20/18 18:59 06:59 18:59 Intake Total 1000 / 1000 Balance 1000 / 1000 Weight 81.647 kg Intake: IV 1000 / 1000 NS Inj 1,000 ML @ 70 mls/hr IV. 1000 / 1000 CONT .[id number] [facility] Rx#:[id number] Other: # Voids 1 4 Date of Last Bowel Movement 07/19/18 07/19/18 # Bowel Movements 1 Narrative: GENERAL: Awake alert and oriented 3 talkative and cooperative SKIN: Warm and dry. HEAD: Atraumatic. Normocephalic. EYES: Pupils equal and round. No scleral icterus. No injection or drainage. EOMI wearing glasses ENT: No nasal bleeding or discharge. Mucous membranes pink and moist. Tongue is midline NECK: Trachea midline. No JVD. Supple CARDIOVASCULAR: Regular rate and rhythm. S1-S2 no S3 or S4 RESPIRATORY: No accessory muscle use. Clear to auscultation. Breath sounds equal bilaterally. GASTROINTESTINAL: Abdomen soft, non-tender, nondistended. Hepatic and splenic margins not palpable. MUSCULOSKELETAL: Extremities without clubbing, cyanosis, or edema. No obvious deformities. NEUROLOGICAL: Awake and alert. No obvious cranial nerve deficits. Motor grossly within normal limits. Five out of 5 muscle strength in the arms and legs. Normal speech. PSYCHIATRIC: Appropriate mood and affect; insight and judgment normal. Results - Labs CBC & Chem 7: 07/20/18 04:15 07/20/18 04:15 Laboratory Results - last 24 hr 07/19/18 07/19/18 07/20/18 19:51 23:35 01:15 WBC RBC Hgb Hct MCV MCH MCHC RDW Plt Count MPV Neut % (Auto) Lymph % (Auto) [place] % (Auto) Eos % (Auto) Baso % (Auto) Neut # (Auto) Lymph # (Auto) [place] # (Auto) Eos # (Auto) Baso # (Auto) WBC Differential Differential Comment PT 10.8 INR 1.1 APTT 21.7 L Sodium Potassium Chloride Carbon Dioxide Anion Gap BUN Creatinine Estimated GFR Random Glucose Calcium Troponin I 0.82 H* D 0.88 H* 07/20/18 07/20/18 07/20/18 04:13 04:15 04:15 WBC 5.9 RBC 3.71 L Hgb 11.8 Hct 34.7 L MCV 93.7 MCH 31.7 MCHC 33.9 RDW 13.8 Plt Count 222 MPV 9.9 Neut % (Auto) 54.7 Lymph % (Auto) 32.9 [place] % (Auto) 10.1 H Eos % (Auto) 1.6 Baso % (Auto) 0.7 Neut # (Auto) 3.2 Lymph # (Auto) 1.9 [place] # (Auto) 0.6 Eos # (Auto) 0.1 Baso # (Auto) 0.0 WBC Differential . Differential Comment Auto diff final PT INR APTT 31.7 H D Sodium 143 Potassium 4.0 Chloride 111 H Carbon Dioxide 23.5 Anion Gap 9 BUN 16 Creatinine 0.82 Estimated GFR 67 L Random Glucose 94 Calcium 8.1 L Troponin I 07/20/18 10:30 WBC RBC Hgb Hct MCV MCH MCHC RDW Plt Count MPV Neut % (Auto) Lymph % (Auto) [place] % (Auto) Eos % (Auto) Baso % (Auto) Neut # (Auto) Lymph # (Auto) [place] # (Auto) Eos # (Auto) Baso # (Auto) WBC Differential Differential Comment PT INR APTT 42.3 H D Sodium Potassium Chloride Carbon Dioxide Anion Gap BUN Creatinine Estimated GFR Random Glucose Calcium Troponin I - Imaging Impressions Carotid Doppler Study 07/19/18 00:00 CONCLUSION: 1. Right Internal Carotid Artery: Findings indicate <50% stenosis. 2. Left Internal Carotid Artery: Findings indicate <50% stenosis. 3. Antegrade flow both vertebral arteries. Assessment and Plan - Assessment (1) Altered mental status Code(s): R41.82 - Altered mental status, unspecified Status: Acute - Plan 77 year old female with HLD, HTN, CAD s/p CABG x 3, "painless" migraines with aura presented to the ER by private vehicle for evaluation of altered mental status earlier in the day. 1. AMS - No signs of infection. No fever, leukocytosis, or UTI - CXR with mild compensated cardiomegaly otherwise negative for acute process - CT and MRI brain negative - MRA brain negative - Carotid U/S ordered - Defer echocardiogram - Neuro exam is completely normal - Pt with recent loss of of 58 years - Likely her symptoms were anxiety from her recent loss and the amount of stress she has been under - NS at 70 ml/hr - Will observe overnight with neuro checks 2. HTN - Elevated likely secondary to anxiety - Resume home metoprolol and Vasotec - Clonidine PRN 3. HLD - Resume home statin 4. CAD - S/P CABG -NSTEMI - EKG showing SR, Q-waves in III and AVF - Troponin negative, trend given altered mentation earlier - Resume home metoprolol and Vasotec Cardiology wants to do a stress test and an echo both are still pending Positive troponins Probable non-ST ID Continue on heparin drip 5. Depression/anxiety - Continue Lexapro - Add Xanax PRN DVT prophylaxis: SCDs Code Status: Full code Discussed Condition With: Discussed with RN and patient and case management and cardiology Discharge Planning: IF stress test and echo are stable hopefully discharge in the next 24 hours
[2018-07-20] MEDS: Heparin Drip 25,000 UNIT/250 ML BAG IV.CONT PRN (18:00)
[2018-07-20] MEDS: ALPRAZolam 0.25 MG Tablet PO PRN (21:05)
[2018-07-21 06:30] LABS: Baso # (Auto) 0.1 th/mm3 (0.0-0.2); Baso % (Auto) 0.9 % (0.0-2.0); Eos # (Auto) 0.2 th/mm3 (0.0-0.4); Eos % (Auto) 3.5 % (0.0-4.0); Hematocrit 35.9 % (35.0-46.0); Hemoglobin 12.2 gm/dL (11.6-15.3); Lymph # (Auto) 1.6 th/mm3 (1.0-4.8); Lymph % (Auto) 25.9 % (9.0-44.0); Mean Corpuscular Hemoglobin 32.1 pg (27.0-34.0); Mean Corpuscular Volume 94.4 fL (80.0-100.0); Mean Platelet Volume 9.5 fL (7.0-11.0); Mono # (Auto) 0.6 th/mm3 (0.0-0.9); Neut # (Auto) 3.7 th/mm3 (1.8-7.7); Neut % (Auto) 60.7 % (16.0-70.0); Platelet Count 196 th/mm3 (150-450); Red Blood Count 3.81 mil/mm3 (4.00-5.30); Red Cell Distribution Width 13.7 % (11.6-17.2); White Blood Count 6.1 th/mm3 (4.0-11.0)
[2018-07-21 06:45] LABS: Alanine Aminotransferase 21 U/L (10-53); Albumin 3.1 g/dL (3.4-5.0); Anion Gap 11 meq/L (5-15); Aspartate Aminotransferase 26 U/L (15-37); Blood Urea Nitrogen 13 mg/dL (7-18); Calcium 8.2 mg/dL (8.5-10.1); Carbon Dioxide 22.7 meq/L (21.0-32.0); Chloride 110 meq/L (98-107); Cholesterol 121 mg/dL (120-200); Glomerular Filtration Rate 72 mL/min (>89); Glucose,Random 101 mg/dL (74-106); Phosphorus 3.2 mg/dL (2.5-4.9); Potassium 4.1 meq/L (3.5-5.1); Sodium 144 meq/L (136-145)
[2018-07-21 06:53] LABS: Alkaline Phosphatase 45 U/L (45-117); Chol/HDL Ratio 3.32 Ratio; Free T4 (Free Thyroxine) 1.21 ng/dL (0.76-1.46); HDL Cholesterol 36.4 mg/dL (40.0-60.0); LDL Cholesterol,Calculated 64 mg/dL (0-99); Total Protein 6.6 g/dL (6.4-8.2); Triglycerides 101 mg/dL (42-150)
[2018-07-21] MEDS ORDERED: Regadenoson Inj 0.4 MG/5 ML Syringe IV.PUSH ONE (09:58)
--- NOTE | 2018-07-21 11:25 | NM ---
EXAM DATE: 07/21/2018 10:57 AM EDT AGE/SEX: 77 years / Female INDICATIONS:Coronary artery disease. . Chest pain. CLINICAL DATA: This is the patient's initial encounter. Patient reports that signs and symptoms have been present for 1 day and indicates a pain score of 0/10. MEDICAL/SURGICAL HISTORY: Hypercholesterolemia. Hypertension. CABG. COMPARISON: No prior exams available for comparison. DOSE: 8.8 mCi Tc 99m Myoview at rest 27.3 mCi [id number] at stress 0.4 mg Lexiscan STRESS SYMPTOMS: Nausea. EJECTION FRACTION: 56 % TECHNIQUE: The patient underwent pharmacologic stress with infusion of prescribed dose. Continuous ECG tracing was monitored during stress. Gated SPECT imaging was performed after stress and conventi onal SPECT imaging was performed at rest. The examination was performed on a SPECT/CT scanner, both attenuation and non-corrected datasets were reviewed. FINDINGS: Distribution: The maximum perfused segment at stress is in the lateral wall. Perfusion Study: There are no obvious reversible perfusion defects identified however there is a la rge fixed perfusion defect involving the anterior, septal lateral and inferior armenta greatest near th e apex. Gated Study: There is hypokinesis identified most pronounced at the apex. The ejection fraction is calculated at 56%. RISK CATEGORY: High (>3% Annual Morality Rate) CONCLUSION: 1. No reversible perfusion defects are identified however a large fixed perfusion deficit is noted w ith associated hypokinesis. Electronically signed by: Garth Lynn MD 07/21/2018 11:24 AM EDT
[2018-07-21] MEDS: Metoprolol Tartrate 50 MG Tablet PO SCH ×2 (11:28→20:59)
[2018-07-21] MEDS: Aspirin 325 MG Tablet PO SCH (11:28)
[2018-07-21] MEDS: Escitalopram 10 MG Tablet PO SCH (11:28)
[2018-07-21] MEDS: Senna/Docusate Sodium 8.6/50 MG Tablet PO SCH ×2 (11:28→21:55)
[2018-07-21] MEDS: Sod Chloride 0.9% Inj 1,000 ML IV.CONT SCH (11:35)
[2018-07-21 13:03] LABS: Hemoglobin A1c 5.8 % (4.3-6.0)
--- NOTE | 2018-07-21 13:42 | P.PNIM ---
Subjective Interval history: 77 year old female with HLD, HTN, CAD s/p CABG x 3, "painless" migraines with aura presented to the ER by private vehicle for evaluation of altered mental status. The patient reports this morning when she was reading she felt like she could read the words but couldn't understand what they meant. She immediately felt anxious and started panicking. She went to her neighbors house who monitored her closely. Her neighbor, a retired RN, reports she is typically very cognitively sharp but states this morning she had difficulty identifying every day items such as a phone charge. She was however able to use the television remote. The patient admits that she has been under a tremendous amount of stress after losing her three weeks ago. She is very worried about her symptoms and is scared it may have been a stroke. She denies any lateralizing symptoms, facial droop, visual changes, slurred speech, dizziness, gait instability, falls, or paresthesias. She states she did notice a headache in between her eyes this morning and it is still present despite taking Tylenol. She denies chest pain, shortness of breath, abdominal pain, nausea, or vomiting. She takes Lexapro for depression. She states lately she has been feeling anxious, shaky, and has had difficulty sleeping. She states aside from feeling anxious her symptoms have otherwise resolved. 07-20 MENTAL STATUS IMPROVED TO HAVE ECHO TODAY AND STRESS TEST TOMORROW LI[facility] RN AND PT AND CM AND CARDIOLOGY 07-21 HAD STRESS TEST HAS FIXED DEFECT HAS NOT HAD ECHO YET LIEN RN AND PT AWAIT CARDIAC CLEARANCE WANTS TO GO HOME Physical Exam Vital signs: Vital Signs 07/20/18 15:39 07/20/18 19:55 07/20/18 20:00 Temperature 97.5 F L 98.1 F Pulse Rate 54 L 56 L 58 L Respiratory Rate 12 16 Blood Pressure 136/64 151/65 H Pulse Oximetry 96 98 07/21/18 00:00 07/21/18 03:55 07/21/18 04:00 Temperature 97.6 F Pulse Rate 48 L 49 L 52 L Respiratory Rate 14 Blood Pressure 139/63 Pulse Oximetry 96 07/21/18 08:00 07/21/18 09:00 07/21/18 11:21 Temperature 97.7 F Pulse Rate 50 L 50 L 55 L Respiratory Rate 16 Blood Pressure 131/63 Pulse Oximetry 97 Intake & Output 07/20/18 07/21/18 07/21/18 18:59 06:59 18:59 Intake Total 1250 / 1250 850 / 850 Balance 1250 / 1250 850 / 850 Intake: IV 1250 / 1250 850 / 850 Heparin/D5W 25,000 U/250 mL 25, 250 / 250 150 / 150 000 unit In 250 ml @ 1,000 UNITS/HR 10 mls/hr IV.CONT TITRATE PRN Rx#:[id number] NS Inj 1,000 ML @ 70 mls/hr IV. 1000 / 1000 700 / 700 CONT .[id number] [facility] Rx#:[id number] Other: # Urine Diapers 4 Date of Last Bowel Movement 07/20/18 Narrative: GENERAL: Awake alert and oriented 3 talkative and cooperative SKIN: Warm and dry. HEAD: Atraumatic. Normocephalic. EYES: Pupils equal and round. No scleral icterus. No injection or drainage. EOMI wearing glasses ENT: No nasal bleeding or discharge. Mucous membranes pink and moist. Tongue is midline NECK: Trachea midline. No JVD. Supple CARDIOVASCULAR: Regular rate and rhythm. S1-S2 no S3 or S4 RESPIRATORY: No accessory muscle use. Clear to auscultation. Breath sounds equal bilaterally. GASTROINTESTINAL: Abdomen soft, non-tender, nondistended. Hepatic and splenic margins not palpable. MUSCULOSKELETAL: Extremities without clubbing, cyanosis, or edema. No obvious deformities. NEUROLOGICAL: Awake and alert. No obvious cranial nerve deficits. Motor grossly within normal limits. Five out of 5 muscle strength in the arms and legs. Normal speech. PSYCHIATRIC: Appropriate mood and affect; insight and judgment normal. Results - Labs CBC & Chem 7: 07/21/18 05:15 07/21/18 05:15 Laboratory Results - last 24 hr 07/20/18 07/21/18 07/21/18 17:07 03:15 05:15 WBC 6.1 RBC 3.81 L Hgb 12.2 Hct 35.9 MCV 94.4 MCH 32.1 MCHC 34.0 RDW 13.7 Plt Count 196 MPV 9.5 Neut % (Auto) 60.7 Lymph % (Auto) 25.9 [place] % (Auto) 9.0 H Eos % (Auto) 3.5 Baso % (Auto) 0.9 Neut # (Auto) 3.7 Lymph # (Auto) 1.6 [place] # (Auto) 0.6 Eos # (Auto) 0.2 Baso # (Auto) 0.1 WBC Differential . Differential Comment Auto diff final APTT 50.0 H Sodium Potassium Chloride Carbon Dioxide Anion Gap BUN Creatinine Estimated GFR Random Glucose Hemoglobin A1c 5.8 Calcium Phosphorus Magnesium Total Bilirubin AST ALT Alkaline Phosphatase Total Protein Albumin Triglycerides Cholesterol LDL Cholesterol, Calc HDL Cholesterol Cholesterol/HDL Ratio TSH Free T4 07/21/18 07/21/18 05:15 05:15 WBC RBC Hgb Hct MCV MCH MCHC RDW Plt Count MPV Neut % (Auto) Lymph % (Auto) [place] % (Auto) Eos % (Auto) Baso % (Auto) Neut # (Auto) Lymph # (Auto) [place] # (Auto) Eos # (Auto) Baso # (Auto) WBC Differential Differential Comment APTT 57.2 H Sodium 144 Potassium 4.1 Chloride 110 H Carbon Dioxide 22.7 Anion Gap 11 BUN 13 Creatinine 0.77 Estimated GFR 72 L Random Glucose 101 Hemoglobin A1c Calcium 8.2 L Phosphorus 3.2 Magnesium 2.0 Total Bilirubin 0.3 AST 26 ALT 21 Alkaline Phosphatase 45 Total Protein 6.6 D Albumin 3.1 L Triglycerides 101 Cholesterol 121 LDL Cholesterol, Calc 64 HDL Cholesterol 36.4 L Cholesterol/HDL Ratio 3.32 TSH 4.260 H Free T4 1.21 - Imaging Impressions Myocardial Perfusion Scan Nuc Med 07/21/18 00:00 CONCLUSION: 1. No reversible perfusion defects are identified however a large fixed perfusion deficit is noted with associated hypokinesis. Assessment and Plan - Assessment (1) Altered mental status Code(s): R41.82 - Altered mental status, unspecified Status: Acute - Plan 77 year old female with HLD, HTN, CAD s/p CABG x 3, "painless" migraines with aura presented to the ER by private vehicle for evaluation of altered mental status earlier in the day. 1. AMS - No signs of infection. No fever, leukocytosis, or UTI - CXR with mild compensated cardiomegaly otherwise negative for acute process - CT and MRI brain negative - MRA brain negative - Carotid U/S ordered - Defer echocardiogram - Neuro exam is completely normal - Pt with recent loss of of 60 years - Likely her symptoms were anxiety from her recent loss and the amount of stress she has been under - NS at 70 ml/hr - Will observe overnight with neuro checks MUCH MORE IMPROVED 2. HTN - Elevated likely secondary to anxiety - Resume home metoprolol and Vasotec - Clonidine PRN 3. HLD - Resume home statin 4. CAD - S/P CABG -NSTEMI - EKG showing SR, Q-waves in III and AVF - Troponin negative, trend given altered mentation earlier - Resume home metoprolol and Vasotec Cardiology wants to do a stress test and an echo both are still pending Positive troponins Probable non-ST ID Continue on heparin drip HAD STRESS TEST - FIXED DEFECT ECHO STILL PENDING 5. Depression/anxiety - Continue Lexapro - Add Xanax PRN DVT prophylaxis: SCDs Code Status: FULL CODE Discussed Condition With: RN AND PT AND CM Discharge Planning: IF stress test and echo are stable hopefully discharge in the next 24 hours
--- NOTE | 2018-07-21 14:19 | P.PNCA ---
Subjective Interval history: No CP/SOB. No acute events. Physical Exam Vital signs: Vital Signs 07/20/18 15:39 07/20/18 19:55 07/20/18 20:00 Temperature 97.5 F L 98.1 F Pulse Rate 54 L 56 L 58 L Respiratory Rate 12 16 Blood Pressure 136/64 151/65 H Pulse Oximetry 96 98 07/21/18 00:00 07/21/18 03:55 07/21/18 04:00 Temperature 97.6 F Pulse Rate 48 L 49 L 52 L Respiratory Rate 14 Blood Pressure 139/63 Pulse Oximetry 96 07/21/18 08:00 07/21/18 09:00 07/21/18 11:21 Temperature 97.7 F Pulse Rate 50 L 50 L 55 L Respiratory Rate 16 Blood Pressure 131/63 Pulse Oximetry 97 Intake & Output 07/20/18 07/21/18 07/21/18 18:59 06:59 18:59 Intake Total 1250 / 1250 850 / 850 Balance 1250 / 1250 850 / 850 Intake: IV 1250 / 1250 850 / 850 Heparin/D5W 25,000 U/250 mL 25, 250 / 250 150 / 150 000 unit In 250 ml @ 1,000 UNITS/HR 10 mls/hr IV.CONT TITRATE PRN Rx#:[id number] NS Inj 1,000 ML @ 70 mls/hr IV. 1000 / 1000 700 / 700 CONT .[id number] [facility] Rx#:[id number] Other: # Urine Diapers 4 Date of Last Bowel Movement 07/20/18 - Constitutional no acute distress - Routine HEENT Exam Head: Present: normocephalic Eye: Present: EOMI - Routine Respiratory Exam Present: CTA bilaterally - Routine Cardiovascular Exam Present: RRR, S1, S2 - Routine Abdominal Exam Present: soft, normoactive bowel sounds - Routine Extremities Exam Absent: edema - Routine Neurological Exam Present: alert, oriented X3 Assessment and Plan - Plan Type 2 NSTEMI Patient currently doing well. Lexiscan shows fixed defect without evidence of reversible ischemia. Will d/c heparin gtt. Calculated EF 56 on nuclear however would like to await results of TTE fo evaluate the LV function and valvular pathology and optimize prior to d/c. Continue current medications.
--- NOTE | 2018-07-21 17:33 | ECHRPT ---
Indication: CORONARY ATHEROSCLEROSIS CONCLUSIONS The left ventricular systolic function is moderately reduced with an estimated ejection fraction in the range of 40-45%. There appears to be apical hypokinesis, can not rule out apical thrombus. Trace mitral valve regurgitation. Mild aortic valve regurgitation. Eccentric aortic regurgitation jet directed at the mitral valve. There is mild tricuspid valve regurgitation. There is estimated mild pulmonary hypertension present ( 40mmHg). BP: / HR: Rhythm: MEASUREMENTS (Male / Female) Normal Values Technical Quality: 2D ECHO LV Diastolic Diameter PLAX 4.8 cm 4.2 - 5.9 / 3.9 - 5.3 cm LV Systolic Diameter PLAX 3.7 cm IVS Diastolic Thickness 1.1 cm 0.6 - 1.0 / 0.6 - 0.9 cm LVPW Diastolic Thickness 1.1 cm 0.6 - 1.0 / 0.6 - 0.9 cm LV Relative Wall Thickness 0.5 RV Internal Dim ED PLAX 3.1 cm LVOT Diameter 1.7 cm LA Systolic Diameter LX 3.6 cm 3.0 - 4.0 / 2.7 - 3.8 cm M-MODE AV Cusp Separation MM 1.8 cm DOPPLER AV Peak Velocity 198.0 cm/s AV Peak Gradient 15.7 mmHg LVOT Peak Velocity 151.0 cm/s LVOT Peak Gradient 9.1 mmHg AV Area Cont Eq pk 1.7 cm Mitral E Point Velocity 97.2 cm/s Mitral A Point Velocity 84.4 cm/s Mitral E to A Ratio 1.2 LV E' Lateral Velocity 13.6 cm/s Mitral E to LV E' Lateral Ratio 7.1 LV E' Septal Velocity 8.9 cm/s Mitral E to LV E' Septal Ratio 11.0 TR Peak Velocity 274.0 cm/s TR Peak Gradient 30.0 mmHg Right Atrial Pressure 10.0 mmHg Pulmonary Artery Systolic Pressu 40.0 mmHg Right Ventricular Systolic Press 40.0 mmHg PV Peak Velocity 113.0 cm/s PV Peak Gradient 5.1 mmHg FINDINGS LEFT VENTRICLE Normal left ventricular size. Wall thickness is normal. The left ventricular systolic function is moderately reduced with an estimated ejection fraction in the range of 40-45%. There appears to be apical hypokinesis, can not rule out apical thrombus. RIGHT VENTRICLE Grossly normal LEFT ATRIUM The left atrium was not well visualized. RIGHT ATRIUM The right atrium is not well visualized. ATRIAL SEPTUM Normal atrial septal thickness AORTA The aortic root and proximal ascending aorta are normal in size on limited imaging. MITRAL VALVE Mitral annular calcification is present. Trace mitral valve regurgitation. No mitral valve stenosis. AORTIC VALVE Aortic valve sclerosis is present. Mild aortic valve regurgitation. Eccentric aortic regurgitation jet directed at the mitral valve. No aortic valve stenosis. TRICUSPID VALVE Structurally normal tricuspid valve. There is mild tricuspid valve regurgitation. There is estimated mild pulmonary hypertension present ( 40mmHg). PULMONARY VALVE No pulmonary valve regurgitation or stenosis. VESSELS The inferior vena cava is normal in size. PERICARDIUM No pericardial effusion. Edgardo Mares DO (Electronically Signed) Final Date:21 July 2018 17:31
[2018-07-22 04:19] VITALS: O2SAT 97
[2018-07-22 07:42] VITALS: BP 152/70; RESP 16; TEMP 97.4
[2018-07-22] MEDS: Escitalopram 10 MG Tablet PO SCH (08:21)
[2018-07-22] MEDS: Aspirin 325 MG Tablet PO SCH (08:21)
[2018-07-22] MEDS: Metoprolol Tartrate 50 MG Tablet PO SCH (08:21)
[2018-07-22] MEDS: Senna/Docusate Sodium 8.6/50 MG Tablet PO SCH (08:21)
[2018-07-22 08:58] LABS: Baso % (Auto) 0.7 % (0.0-2.0); Eos # (Auto) 0.2 th/mm3 (0.0-0.4); Eos % (Auto) 2.8 % (0.0-4.0); Hematocrit 36.4 % (35.0-46.0); Hemoglobin 12.7 gm/dL (11.6-15.3); Lymph # (Auto) 1.1 th/mm3 (1.0-4.8); Mean Corpuscular HGB Conc 34.9 % (32.0-36.0); Mean Corpuscular Hemoglobin 32.3 pg (27.0-34.0); Mean Corpuscular Volume 92.4 fL (80.0-100.0); Mean Platelet Volume 9.6 fL (7.0-11.0); Mono # (Auto) 0.5 th/mm3 (0.0-0.9); Neut % (Auto) 68.5 % (16.0-70.0); Platelet Count 223 th/mm3 (150-450); Red Blood Count 3.94 mil/mm3 (4.00-5.30); Red Cell Distribution Width 13.4 % (11.6-17.2); White Blood Count 5.8 th/mm3 (4.0-11.0)
[2018-07-22 09:09] VITALS: PULSE 49
[2018-07-22 09:23] LABS: Albumin 3.3 g/dL (3.4-5.0); Anion Gap 11 meq/L (5-15); Aspartate Aminotransferase 25 U/L (15-37); Blood Urea Nitrogen 12 mg/dL (7-18); Calcium 8.8 mg/dL (8.5-10.1); Carbon Dioxide 24.9 meq/L (21.0-32.0); Chloride 106 meq/L (98-107); Glomerular Filtration Rate 71 mL/min (>89); Glucose,Random 96 mg/dL (74-106); Potassium 3.6 meq/L (3.5-5.1); Sodium 142 meq/L (136-145)
--- NOTE | 2018-07-22 09:25 | P.PNIM ---
Subjective Interval history: 77 year old female with HLD, HTN, CAD s/p CABG x 3, "painless" migraines with aura presented to the ER by private vehicle for evaluation of altered mental status. The patient reports this morning when she was reading she felt like she could read the words but couldn't understand what they meant. She immediately felt anxious and started panicking. She went to her neighbors house who monitored her closely. Her neighbor, a retired RN, reports she is typically very cognitively sharp but states this morning she had difficulty identifying every day items such as a phone charge. She was however able to use the television remote. The patient admits that she has been under a tremendous amount of stress after losing her three weeks ago. She is very worried about her symptoms and is scared it may have been a stroke. She denies any lateralizing symptoms, facial droop, visual changes, slurred speech, dizziness, gait instability, falls, or paresthesias. She states she did notice a headache in between her eyes this morning and it is still present despite taking Tylenol. She denies chest pain, shortness of breath, abdominal pain, nausea, or vomiting. She takes Lexapro for depression. She states lately she has been feeling anxious, shaky, and has had difficulty sleeping. She states aside from feeling anxious her symptoms have otherwise resolved. 07-20 MENTAL STATUS IMPROVED TO HAVE ECHO TODAY AND STRESS TEST TOMORROW LIEN RN AND PT AND CM AND CARDIOLOGY 07-21 HAD STRESS TEST HAS FIXED DEFECT HAS NOT HAD ECHO YET LIEN RN AND PT AWAIT CARDIAC CLEARANCE WANTS TO GO HOME 07-22 HAS BEEN CLEARED BY CARDIOLOGY WANTS TO GO HOME LIEN RN AND PT AND CARDIOLOGY ECHO EF 40-45% Physical Exam Vital signs: Vital Signs 07/21/18 11:21 07/21/18 15:58 07/21/18 20:00 Temperature 97.7 F 97.4 F L 97.9 F Pulse Rate 55 L 48 L 54 L Respiratory Rate 16 16 17 Blood Pressure 131/63 115/56 L 134/62 Pulse Oximetry 97 98 95 07/21/18 20:40 07/21/18 23:37 07/22/18 01:00 Temperature 97.8 F Pulse Rate 50 L 47 L 48 L Respiratory Rate 17 Blood Pressure 117/74 Pulse Oximetry 98 07/22/18 04:00 07/22/18 07:41 07/22/18 08:15 Temperature 98.5 F 97.4 F L Pulse Rate 57 L 50 L 49 L Respiratory Rate 18 16 Blood Pressure 156/67 H 152/70 H Pulse Oximetry 97 Intake & Output 07/21/18 07/22/18 07/22/18 18:59 06:59 18:59 Intake Total 950 / 950 Balance 950 / 950 Intake: IV 950 / 950 Heparin/D5W 25,000 U/250 mL 25, 150 / 150 000 unit In 250 ml @ 1,000 UNITS/HR 10 mls/hr IV.CONT TITRATE PRN Rx#:[id number] NS Inj 1,000 ML @ 70 mls/hr IV. 800 / 800 CONT .[id number] [facility] Rx#:[id number] Other: Date of Last Bowel Movement 07/21/18 07/21/18 07/21/18 # Bowel Movements 1 Narrative: GENERAL: Awake alert and oriented 3 talkative and cooperative SKIN: Warm and dry. HEAD: Atraumatic. Normocephalic. EYES: Pupils equal and round. No scleral icterus. No injection or drainage. EOMI wearing glasses ENT: No nasal bleeding or discharge. Mucous membranes pink and moist. Tongue is midline NECK: Trachea midline. No JVD. Supple CARDIOVASCULAR: Regular rate and rhythm. S1-S2 no S3 or S4 RESPIRATORY: No accessory muscle use. Clear to auscultation. Breath sounds equal bilaterally. GASTROINTESTINAL: Abdomen soft, non-tender, nondistended. Hepatic and splenic margins not palpable. MUSCULOSKELETAL: Extremities without clubbing, cyanosis, or edema. No obvious deformities. NEUROLOGICAL: Awake and alert. No obvious cranial nerve deficits. Motor grossly within normal limits. Five out of 5 muscle strength in the arms and legs. Normal speech. PSYCHIATRIC: Appropriate mood and affect; insight and judgment normal. Results - Labs CBC & Chem 7: 07/22/18 07:15 07/21/18 05:15 Laboratory Results - last 24 hr 07/21/18 07/22/18 03:15 07:15 WBC 5.8 RBC 3.94 L Hgb 12.7 Hct 36.4 MCV 92.4 MCH 32.3 MCHC 34.9 RDW 13.4 Plt Count 223 MPV 9.6 Neut % (Auto) 68.5 Lymph % (Auto) 19.0 [place] % (Auto) 9.0 H Eos % (Auto) 2.8 Baso % (Auto) 0.7 Neut # (Auto) 4.0 Lymph # (Auto) 1.1 [place] # (Auto) 0.5 Eos # (Auto) 0.2 Baso # (Auto) 0.0 WBC Differential . Differential Comment Auto diff final Hemoglobin A1c 5.8 Microbiology 07/21/18 11:20 Stool Stool Occult Blood (SHERITA) - Final Hemoccult negative - Imaging Impressions Myocardial Perfusion Scan Nuc Med 07/21/18 00:00 CONCLUSION: 1. No reversible perfusion defects are identified however a large fixed perfusion deficit is noted with associated hypokinesis. - Procedures NONE Assessment and Plan - Assessment (1) Altered mental status Code(s): R41.82 - Altered mental status, unspecified Status: Acute - Plan 77 year old female with HLD, HTN, CAD s/p CABG x 3, "painless" migraines with aura presented to the ER by private vehicle for evaluation of altered mental status earlier in the day. 1. AMS - No signs of infection. No fever, leukocytosis, or UTI - CXR with mild compensated cardiomegaly otherwise negative for acute process - CT and MRI brain negative - MRA brain negative - Carotid U/S ordered - Defer echocardiogram - Neuro exam is completely normal - Pt with recent loss of of 60 years - Likely her symptoms were anxiety from her recent loss and the amount of stress she has been under - NS at 70 ml/hr - Will observe overnight with neuro checks MUCH MORE IMPROVED ECHO 40 TO 45% 2. HTN - Elevated likely secondary to anxiety - Resume home metoprolol and Vasotec - Clonidine PRN 3. HLD - Resume home statin 4. CAD - S/P CABG -NSTEMI - EKG showing SR, Q-waves in III and AVF - Troponin negative, trend given altered mentation earlier - Resume home metoprolol and Vasotec Cardiology wants to do a stress test and an echo both are still pending Positive troponins Probable non-ST [place] Continue on heparin drip HAD STRESS TEST - FIXED DEFECT ECHO EF 40-45% 5. Depression/anxiety - Continue Lexapro - Add Xanax PRN DVT prophylaxis: SCDs DC TO HOME Code Status: FULL CODE Discussed Condition With: RN AND PT Discharge Planning: DC TO HOME
[2018-07-22 09:28] LABS: Alanine Aminotransferase 22 U/L (10-53); Alkaline Phosphatase 50 U/L (45-117); Total Protein 6.8 g/dL (6.4-8.2)
--- NOTE | 2018-07-22 09:39 | P.DS ---
Date of admission: 07/19/18 13:38 Primary care physician: Fernie Sauceda MD Attending physician on discharge: Johann Jack Anticipated date of discharge: 07/22/18 Brief History from admission: 77 year old female with HLD, HTN, CAD s/p CABG x 3, "painless" migraines with aura presented to the ER by private vehicle for evaluation of altered mental status. The patient reports this morning when she was reading she felt like she could read the words but couldn't understand what they meant. She immediately felt anxious and started panicking. She went to her neighbors [place] who monitored her closely. Her neighbor, a retired RN, reports she is typically very cognitively sharp but states this morning she had difficulty identifying every day items such as a phone charge. She was however able to use the television remote. The patient admits that she has been under a tremendous amount of stress after losing her three weeks ago. She is very worried about her symptoms and is scared it may have been a stroke. She denies any lateralizing symptoms, facial droop, visual changes, slurred speech, dizziness, gait instability, falls, or paresthesias. She states she did notice a headache in between her eyes this morning and it is still present despite taking Tylenol. She denies chest pain, shortness of breath, abdominal pain, nausea, or vomiting. She takes Lexapro for depression. She states lately she has been feeling anxious, shaky, and has had difficulty sleeping. She states aside from feeling anxious her symptoms have otherwise resolved. DS: Diagnosis - Discharge Diagnosis (1) Altered mental status Status: Acute (2) NSTEMI (non-ST elevated myocardial infarction) Status: Acute (3) Hypothyroidism Status: Chronic DS: Summary Hospital Course: 77 year old female with HLD, HTN, CAD s/p CABG x 3, "painless" migraines with aura presented to the ER by private vehicle for evaluation of altered mental status. The patient reports this morning when she was reading she felt like she could read the words but couldn't understand what they meant. She immediately felt anxious and started panicking. She went to her neighbors [place] who monitored her closely. Her neighbor, a retired RN, reports she is typically very cognitively sharp but states this morning she had difficulty identifying every day items such as a phone charge. She was however able to use the television remote. The patient admits that she has been under a tremendous amount of stress after losing her three weeks ago. She is very worried about her symptoms and is scared it may have been a stroke. She denies any lateralizing symptoms, facial droop, visual changes, slurred speech, dizziness, gait instability, falls, or paresthesias. She states she did notice a headache in between her eyes this morning and it is still present despite taking Tylenol. She denies chest pain, shortness of breath, abdominal pain, nausea, or vomiting. She takes Lexapro for depression. She states lately she has been feeling anxious, shaky, and has had difficulty sleeping. She states aside from feeling anxious her symptoms have otherwise resolved. 07-20 MENTAL STATUS IMPROVED TO HAVE ECHO TODAY AND STRESS TEST TOMORROW DW RN AND PT AND CM AND CARDIOLOGY 07-21 HAD STRESS TEST HAS FIXED DEFECT HAS NOT HAD ECHO YET LIEN RN AND PT AWAIT CARDIAC CLEARANCE WANTS TO GO HOME 07-22 HAS BEEN CLEARED BY CARDIOLOGY WANTS TO GO HOME DW RN AND PT AND CARDIOLOGY ECHO EF 40-45% - Time Spent with Patient Total time spent providing and/or coordinating discharge services: Greater than 30 minutes - Quality: VTE Deep Vein Thrombosis/Pulmonary Embolism Present on Admission: No Exam Vital signs: Vital Signs 07/21/18 11:21 07/21/18 15:58 07/21/18 20:00 Temperature 97.7 F 97.4 F L 97.9 F Pulse Rate 55 L 48 L 54 L Respiratory Rate 16 16 17 Blood Pressure 131/63 115/56 L 134/62 Pulse Oximetry 97 98 95 07/21/18 20:40 07/21/18 23:37 07/22/18 01:00 Temperature 97.8 F Pulse Rate 50 L 47 L 48 L Respiratory Rate 17 Blood Pressure 117/74 Pulse Oximetry 98 07/22/18 04:00 07/22/18 07:41 07/22/18 08:15 Temperature 98.5 F 97.4 F L Pulse Rate 57 L 50 L 49 L Respiratory Rate 18 16 Blood Pressure 156/67 H 152/70 H Pulse Oximetry 97 Intake & Output 07/21/18 07/22/18 07/22/18 18:59 06:59 18:59 Intake Total 950 / 950 Balance 950 / 950 Intake: IV 950 / 950 Heparin/D5W 25,000 U/250 mL 25, 150 / 150 000 unit In 250 ml @ 1,000 UNITS/HR 10 mls/hr IV.CONT TITRATE PRN Rx#:[id number] NS Inj 1,000 ML @ 70 mls/hr IV. 800 / 800 CONT .[id number] LETY Rx#:[id number] Other: Date of Last Bowel Movement 07/21/18 07/21/18 07/21/18 # Bowel Movements 1 Narrative: GENERAL: Awake alert and oriented 3 talkative and cooperative SKIN: Warm and dry. HEAD: Atraumatic. Normocephalic. EYES: Pupils equal and round. No scleral icterus. No injection or drainage. EOMI wearing glasses ENT: No nasal bleeding or discharge. Mucous membranes pink and moist. Tongue is midline NECK: Trachea midline. No JVD. Supple CARDIOVASCULAR: Regular rate and rhythm. S1-S2 no S3 or S4 RESPIRATORY: No accessory muscle use. Clear to auscultation. Breath sounds equal bilaterally. GASTROINTESTINAL: Abdomen soft, non-tender, nondistended. Hepatic and splenic margins not palpable. MUSCULOSKELETAL: Extremities without clubbing, cyanosis, or edema. No obvious deformities. NEUROLOGICAL: Awake and alert. No obvious cranial nerve deficits. Motor grossly within normal limits. Five out of 5 muscle strength in the arms and legs. Normal speech. PSYCHIATRIC: Appropriate mood and affect; insight and judgment normal. Results Procedures completed during hospitalization: NONE Completed studies during hospitalization: Laboratory Results WBC 5.8 th/mm3 (4.0-11.0) 07/22/18 07:15 RBC 3.94 mil/mm3 (4.00-5.30) L 07/22/18 07:15 Hgb 12.7 gm/dL (11.6-15.3) 07/22/18 07:15 Hct 36.4 % (35.0-46.0) 07/22/18 07:15 MCV 92.4 fL (80.0-100.0) 07/22/18 07:15 MCH 32.3 pg (27.0-34.0) 07/22/18 07:15 MCHC 34.9 % (32.0-36.0) 07/22/18 07:15 RDW 13.4 % (11.6-17.2) 07/22/18 07:15 Plt Count 223 th/mm3 (150-450) 07/22/18 07:15 MPV 9.6 fL (7.0-11.0) 07/22/18 07:15 Neut % (Auto) 68.5 % (16.0-70.0) 07/22/18 07:15 Lymph % (Auto) 19.0 % (9.0-44.0) 07/22/18 07:15 [place] % (Auto) 9.0 % (0.0-8.0) H 07/22/18 07:15 Eos % (Auto) 2.8 % (0.0-4.0) 07/22/18 07:15 Baso % (Auto) 0.7 % (0.0-2.0) 07/22/18 07:15 Neut # (Auto) 4.0 th/mm3 (1.8-7.7) 07/22/18 07:15 Lymph # (Auto) 1.1 th/mm3 (1.0-4.8) 07/22/18 07:15 [place] # (Auto) 0.5 th/mm3 (0.0-0.9) 07/22/18 07:15 Eos # (Auto) 0.2 th/mm3 (0.0-0.4) 07/22/18 07:15 Baso # (Auto) 0.0 th/mm3 (0.0-0.2) 07/22/18 07:15 WBC Differential . 07/22/18 07:15 Differential Comment Auto diff final 07/22/18 07:15 PT 10.8 sec (9.8-11.6) 07/19/18 23:35 INR 1.1 Ratio 07/19/18 23:35 APTT 57.2 sec (24.3-30.1) H 07/21/18 05:15 Sodium 142 meq/L (136-145) 07/22/18 07:15 Potassium 3.6 meq/L (3.5-5.1) 07/22/18 07:15 Chloride 106 meq/L (98-107) 07/22/18 07:15 Carbon Dioxide 24.9 meq/L (21.0-32.0) 07/22/18 07:15 Anion Gap 11 meq/L (5-15) 07/22/18 07:15 BUN 12 mg/dL (7-18) 07/22/18 07:15 Creatinine 0.78 mg/dL (0.50-1.00) 07/22/18 07:15 Estimated GFR 71 mL/min (>89) L 07/22/18 07:15 POC Glucose 113 mg/dl (68-110) H 07/19/18 12:29 Random Glucose 96 mg/dL (74-106) 07/22/18 07:15 Hemoglobin A1c 5.8 % (4.3-6.0) 07/21/18 03:15 Calcium 8.8 mg/dL (8.5-10.1) 07/22/18 07:15 Phosphorus 3.0 mg/dL (2.5-4.9) 07/22/18 07:15 Magnesium 2.0 mg/dL (1.5-2.5) 07/22/18 07:15 Total Bilirubin 0.5 mg/dL (0.2-1.0) 07/22/18 07:15 AST 25 U/L (15-37) 07/22/18 07:15 ALT 22 U/L (10-53) 07/22/18 07:15 Alkaline Phosphatase 50 U/L (45-117) 07/22/18 07:15 Total Creatine Kinase 97 U/L (26-192) 07/19/18 11:58 Troponin I 0.88 ng/mL (0.02-0.05) H* 07/20/18 01:15 Total Protein 6.8 g/dL (6.4-8.2) 07/22/18 07:15 Albumin 3.3 g/dL (3.4-5.0) L 07/22/18 07:15 Triglycerides 101 mg/dL (42-150) 07/21/18 05:15 Cholesterol 121 mg/dL (120-200) 07/21/18 05:15 LDL Cholesterol, Calc 64 mg/dL (0-99) 07/21/18 05:15 HDL Cholesterol 36.4 mg/dL (40.0-60.0) L 07/21/18 05:15 Cholesterol/HDL Ratio 3.32 Ratio 07/21/18 05:15 TSH 4.260 uIU/mL (0.358-3.740) H 07/21/18 05:15 Free T4 1.21 ng/dL (0.76-1.46) 07/21/18 05:15 Urine Color Straw (Yellw/Straw) 07/19/18 12:26 Urine Clarity Clear (Clear) 07/19/18 12:26 Urine pH 8.0 (5.0-8.5) 07/19/18 12:26 Ur Specific [place] 1.006 (1.002-1.035) 07/19/18 12:26 Urine Protein Negative mg/dL (Neg-Trace) 07/19/18 12:26 Urine Glucose (UA) Negative mg/dL (Negative) 07/19/18 12:26 Urine Ketones Negative mg/dL (Negative) 07/19/18 12:26 Urine Occult Blood Negative (Negative) 07/19/18 12:26 Urine Nitrate Negative (Negative) 07/19/18 12:26 Urine Bilirubin Negative (Negative) 07/19/18 12:26 Urine Urobilinogen Less than 2 mg/dL (Less than 2) 07/19/18 12:26 Ur Leukocyte Esterase Negative (Negative) 07/19/18 12:26 Urine RBC 1 /hpf (0-3) 07/19/18 12:26 Urine WBC Less than 1 /hpf (0-5) 07/19/18 12:26 Micro UA Comment Culture not ind 07/19/18 12:26 Ur Microscopic Review Not Reportable 07/19/18 12:26 Urine Culture Comments Culture not ind 07/19/18 12:26 Impressions Carotid Doppler Study 07/19/18 00:00 CONCLUSION: 1. Right Internal Carotid Artery: Findings indicate <50% stenosis. 2. Left Internal Carotid Artery: Findings indicate <50% stenosis. 3. Antegrade flow both vertebral arteries. Head MRI 07/19/18 00:00 CONCLUSION: No acute intracranial findings. Head MRA 07/19/18 00:00 CONCLUSION: Negative MRA [place] ([place]) non contrast. Chest X-Ray 07/19/18 11:30 CONCLUSION: 1. Postsurgical features with compensated mild cardiomegaly. Head CT 07/19/18 11:30 CONCLUSION: 1. Senescent changes without acute intracranial abnormality. . Myocardial Perfusion Scan Nuc Med 07/21/18 00:00 CONCLUSION: 1. No reversible perfusion defects are identified however a large fixed perfusion deficit is noted with associated hypokinesis. Labs on day of discharge: Labs from last 24 hours 07/22/18 07/22/18 07/21/18 07:15 07:15 03:15 WBC 5.8 RBC 3.94 L Hgb 12.7 Hct 36.4 MCV 92.4 MCH 32.3 MCHC 34.9 RDW 13.4 Plt Count 223 MPV 9.6 Neut % (Auto) 68.5 Lymph % (Auto) 19.0 [place] % (Auto) 9.0 H Eos % (Auto) 2.8 Baso % (Auto) 0.7 Neut # (Auto) 4.0 Lymph # (Auto) 1.1 [place] # (Auto) 0.5 Eos # (Auto) 0.2 Baso # (Auto) 0.0 WBC Differential . Differential Comment Auto diff final Sodium 142 Potassium 3.6 Chloride 106 Carbon Dioxide 24.9 Anion Gap 11 BUN 12 Creatinine 0.78 Estimated GFR 71 L Random Glucose 96 Hemoglobin A1c 5.8 Calcium 8.8 Phosphorus Pending Magnesium 2.0 Total Bilirubin Pending AST 25 ALT Pending Alkaline Phosphatase Pending Total Protein Pending Albumin 3.3 L - Impressions ITS Impressions Carotid Doppler Study 07/19/18 00:00 CONCLUSION: 1. Right Internal Carotid Artery: Findings indicate <50% stenosis. 2. Left Internal Carotid Artery: Findings indicate <50% stenosis. 3. Antegrade flow both vertebral arteries. Head MRI 07/19/18 00:00 CONCLUSION: No acute intracranial findings. Head MRA 07/19/18 00:00 CONCLUSION: Negative MRA [place] ([place]) non contrast. Chest X-Ray 07/19/18 11:30 CONCLUSION: 1. Postsurgical features with compensated mild cardiomegaly. Head CT 07/19/18 11:30 CONCLUSION: 1. Senescent changes without acute intracranial abnormality. . Myocardial Perfusion Scan Nuc Med 07/21/18 00:00 CONCLUSION: 1. No reversible perfusion defects are identified however a large fixed perfusion deficit is noted with associated hypokinesis. Discharge Plan - Discharge Disposition Patient Disposition: 01 Discharge Home - Discharge Condition Condition: Stable - Discharge Order Discharge Orders: Discharge Order (Routine); Ordered 07/22/18 Ordered By: Garfield Carmona - Discharge Details Anticipated Discharge Date: 07/22/18 Discharge Comment: DC TO HOME TODAY - Physicians Team Primary Care Provider: Fernie Sauceda Attending Provider: Johann Jack Other Providers: Garfield Carmona MD
== END 2018-07-22 11:01 | disposition home or self-care (01) ==
LOC: NEDA 10:49 → NEPE 10:49 → NEDA 17:20 → NEPGCP 18:09
PROVIDERS: ADMIT Hospitalist; ATTEND Hospitalist